=== PATIENT | female | born 1965 | race Caucasian/White ===

== ENCOUNTER 2017-07-31 11:50 | Day surgery (SDC) | payer OTHER ==
[2017-07-30 11:34] VITALS: BMI 23.8
[2017-07-31 14:59] VITALS: BP 120/74; PULSE 63; TEMP 97.8
== END 2017-07-31 13:56 | disposition home or self-care (01) ==
LOC: JASU-ENDO 11:50
PROVIDERS: ATTEND Internal Medicine Gastroenterology
PROC: 0DJD8ZZ Inspection of Lower Intestinal Tract, Via Natural or Artificial Opening Endoscopic (ICD-10-PCS; principal; 2017-07-31 13:00)
DX: Z12.11 Encounter for screening for malignant neoplasm of colon (principal); K64.8 Other hemorrhoids; K63.89 Other specified diseases of intestine
CPT/HCPCS: 84703

== ENCOUNTER 2019-01-25 16:47 | Emergency (ER) | payer BC ==
[2019-01-25 16:53] VITALS: TEMP 98.2; BMI 23.6
--- NOTE | 2019-01-25 16:56 | PDOC ---
Rapid Medical Evaluation Time Seen by Provider: 01/25/19 16:49 Medical Evaluation: Allergies Allergy/AdvReac Type Severity Reaction Status Date / Time No Known Allergies Allergy Verified 07/30/17 11:34 01/25/19 16:49 I have performed a brief in-person evaluation of this patient. The patient presents with a chief complaint of: Sent by Dr. Moreno for r/o PE. Chest/back pain with inspiration. Just received iron infusion near [facility]. denies recent surgery, no hormonal use, no recent travel. Pertinent physical exam findings: uncomfortable appearing I have ordered the following: ekg, labs The patient will proceed to the ED for further evaluation. Discharge Disposition - Diagnosis Chest pain - Referrals - Patient Instructions - Post Discharge Activity
--- NOTE | 2019-01-25 17:50 | PDOC ---
History of Present Illness - General Chief Complaint: Chest Pain Stated Complaint: SENT BY PCP Time Seen by Provider: 01/25/19 16:49 - History of Present Illness Initial Comments: 01/25/19 17:49 The patient denies shortness of breath, headache and dizziness. Denies fever, chills, nausea, vomit, diarrhea and constipation. Denies dysuria, frequency, urgency and hematuria. Past History - Past Medical History Allergies/Adverse Reactions: Allergies Allergy/AdvReac Type Severity Reaction Status Date / Time No Known Allergies Allergy Verified 01/25/19 16:53 Home Medications: Ambulatory Orders Ferrous Sulfate [Feosol] 325 mg PO DAILY 07/30/17 Anemia: Yes (IRON DEFICIENCY ANEMIA) Asthma: No Cancer: No Cardiac Disorders: No CVA: No COPD: No CHF: No Dementia: No Diabetes: No GI Disorders: No Disorders: No HTN: No Hypercholesterolemia: No Liver Disease: No Seizures: No Thyroid Disease: Yes (HYPO) - Surgical History Abdominal Surgery: No Appendectomy: No Cardiac Surgery: No Cholecystectomy: No Lung Surgery: No Neurologic Surgery: No Orthopedic Surgery: Yes (RT HAND LIGAMENT SURGERY) - Psycho Social/Smoking Cessation Hx Smoking History: Never smoked Hx Alcohol Use: No Drug/Substance Use Hx: No Substance Use Type: None Hx Substance Use Treatment: No Review of Systems - Review of Systems Comments:: 01/25/19 17:49 GENERAL/CONSTITUTIONAL: No fever or chills. No weakness. HEAD, EYES, EARS, NOSE AND THROAT: No change in vision. No ear pain or discharge. No sore throat. CARDIOVASCULAR: No chest pain or shortness of breath RESPIRATORY: No cough, wheezing, or hemoptysis. GASTROINTESTINAL: No nausea, vomiting, diarrhea or constipation. GENITOURINARY: No dysuria, frequency, or change in urination. MUSCULOSKELETAL: No joint or muscle swelling or pain. No neck or back pain. SKIN: No rash NEUROLOGIC: No headache, vertigo, loss of consciousness, or change in strength/ sensation. ENDOCRINE: No increased thirst. No abnormal weight change HEMATOLOGIC/LYMPHATIC: No anemia, easy bleeding, or history of blood clots. ALLERGIC/IMMUNOLOGIC: No hives or skin allergy. *Physical Exam - Vital Signs Last Vital Signs Temp Pulse Resp BP Pulse Ox 98.2 F 87 18 145/84 100 01/25/19 16:49 01/25/19 16:49 01/25/19 16:49 01/25/19 16:49 01/25/19 16:49 - Physical Exam Comments: 01/25/19 17:50 GENERAL: Awake, alert, and fully oriented, in no acute distress HEAD: No signs of trauma, normocephalic, atraumatic EYES: PERRLA, EOMI, sclera anicteric, conjunctiva clear ENT: Auricles normal inspection, hearing grossly normal, nares patent, oropharynx clear without exudates. Moist mucosa NECK: Normal ROM, supple, no lymphadenopathy, JVD, or masses LUNGS: No distress, speaks full sentences, clear to auscultation bilaterally HEART: Regular rate and rhythm, normal S1 and S2, no murmurs, rubs or gallops, peripheral pulses normal and equal bilaterally. ABDOMEN: Soft, nontender, normoactive bowel sounds. No guarding, no rebound. No masses EXTREMITIES: Normal inspection, Normal range of motion, no edema. No clubbing or cyanosis. NEUROLOGICAL: Cranial nerves II through XII grossly intact. Normal speech, normal gait, no focal sensorimotor deficits SKIN: Warm, Dry, normal turgor, no rashes or lesions noted. ED Treatment Course - LABORATORY CBC & Chemistry Diagram: 01/25/19 17:30 01/25/19 17:30 Discharge - Discharge Information Clinical Impression/Diagnosis: Chest pain - Follow up/Referral - Patient Discharge Instructions - Post Discharge Activity
[2019-01-25 17:53] LABS: BASO % 0.4 % (0-2.0); EOS % 0.2 % (0-4.5); HEMATOCRIT 29.8 % (32.4-45.2); HEMOGLOBIN 9.1 GM/dL (10.7-15.3); LYMPH % 10.4 % (8-40); MCH 20.6 pg (25.7-33.7); MCHC 30.4 g/dl (32.0-36.0); MEAN CELL VOLUME 67.8 fl (80-96); MEAN PLT VOLUME 9.1 fl (7.5-11.1); MONO % 1.3 % (3.8-10.2); NEUT % 87.7 % (42.8-82.8); PLATELET COUNT 419 K/MM3 (134-434); RDW 17.7 % (11.6-15.6); WHITE BLOOD COUNT 11.4 K/mm3 (4.0-10.0)
[2019-01-25 18:06] LABS: INR 1.1 (0.83-1.09)
[2019-01-25] MEDS ORDERED: SODIUM CHLORIDE 1,000 ML IV STA (18:08)
[2019-01-25 18:09] LABS: ACTIVATED PTT 32.4 SECONDS (25.2-36.5)
--- NOTE | 2019-01-25 18:14 | PDOC ---
History of Present Illness - General Chief Complaint: Chest Pain Stated Complaint: SENT BY PCP Time Seen by Provider: 01/25/19 16:49 History Source: Patient - History of Present Illness Initial Comments: 01/25/19 18:09 53 yo F PMH of anemia presents to ED with back pain. Pt states she had an iron transfusion beginning at 2 pm today. throughout the whole transfusion she had no complaints. after she left the transfusion center she states that she suddenly has LBP. She went to her PMD who recommended she come to the ED. While at the ED the pt states she had 10/10 LBP which radiated to scapula and anterior chest. Pt states it was worse with breathing. Pt states since she first got here, the pain is going away and now its a 2/10. She is also having R hand swelling . denies SOB, difficulty swallowing, pruritus. 01/25/19 18:27 01/25/19 18:30 Past History - Past Medical History Allergies/Adverse Reactions: Allergies Allergy/AdvReac Type Severity Reaction Status Date / Time No Known Allergies Allergy Verified 01/25/19 16:53 Home Medications: Ambulatory Orders Ferrous Sulfate [Feosol] 325 mg PO DAILY 07/30/17 Anemia: Yes (IRON DEFICIENCY ANEMIA) Asthma: No Cancer: No Cardiac Disorders: No CVA: No COPD: No CHF: No Dementia: No Diabetes: No GI Disorders: No Disorders: No HTN: No Hypercholesterolemia: No Liver Disease: No Seizures: No Thyroid Disease: Yes (HYPO) - Surgical History Abdominal Surgery: No Appendectomy: No Cardiac Surgery: No Cholecystectomy: No Lung Surgery: No Neurologic Surgery: No Orthopedic Surgery: Yes (RT HAND LIGAMENT SURGERY) - Psycho Social/Smoking Cessation Hx Smoking History: Never smoked Hx Alcohol Use: No Drug/Substance Use Hx: No Substance Use Type: None Hx Substance Use Treatment: No Review of Systems - Review of Systems Constitutional: No: Chills, Fever HEENTM: No: Throat Pain, Difficulty Swallowing, Mouth Swelling Respiratory: No: Shortness of Breath, Stridor, Wheezing Cardiac (ROS): No: Chest Pain, Lightheadedness ABD/GI: No: Nausea, Vomiting Musculoskeletal: Yes: Back Pain, Joint Stiffness (R wrist ) Neurological: Yes: Tingling (from head to toes). No: Headache Hematologic/Lymphatic: Yes: Anemia *Physical Exam - Vital Signs Last Vital Signs Temp Pulse Resp BP Pulse Ox 98.2 F 87 18 145/84 100 01/25/19 16:49 01/25/19 16:49 01/25/19 16:49 01/25/19 16:49 01/25/19 16:49 - Physical Exam General Appearance: Yes: Nourished, Appropriately Dressed. No: Apparent Distress, Disheveled HEENT: positive: Normal Voice, Pharynx Normal. negative: Muffled/Hoarse voice, Pharyngeal Erythema, Tonsillar Exudate, Tonsillar Erythema Neck: negative: Lymphadenopathy (R), Lymphadenopathy (L) Respiratory/Chest: positive: Lungs Clear, Normal Breath Sounds. negative: Respiratory Distress, Accessory Muscle Use Cardiovascular: positive: Regular Rhythm, S1, S2, Tachycardia. negative: Murmur Gastrointestinal/Abdominal: positive: Normal Bowel Sounds, Soft. negative: Distended, Guarding, Rebound Musculoskeletal: positive: Normal Inspection. 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, Fully Oriented ED Treatment Course - LABORATORY CBC & Chemistry Diagram: 01/25/19 17:30 01/25/19 17:30 - ADDITIONAL ORDERS Additional order review: Laboratory Results 01/25/19 17:30 PT with INR 13.00 INR 1.10 H PTT (Actin FS) 32.4 01/25/19 17:30 RBC 4.40 MCV 67.8 L MCHC 30.4 L RDW 17.7 H MPV 9.1 Neutrophils % 87.7 H Lymphocytes % 10.4 Monocytes % 1.3 L Eosinophils % 0.2 Basophils % 0.4 Medical Decision Making - Medical Decision Making 01/25/19 18:38 53 yo F with back pain post Fe transfusion -cbc, cmp -ekg nsr -cxr reviewed, no acute pulm process 01/25/19 18:39 -UA reviewed no UTI 01/25/19 18:59 Discharge - Discharge Information Problems reviewed: Yes Clinical Impression/Diagnosis: Back pain Qualifiers: Back pain location: low back pain Chronicity: acute Back pain laterality: bilateral Sciatica presence: without sciatica Qualified Code(s): M54.5 - Low back pain Condition: Good Disposition: HOME - Admission No - Follow up/Referral - Patient Discharge Instructions Patient Printed Discharge Instructions: DI for Low Back Pain Additional Instructions: You came into the hospital for low back pain. You had an EKG, Chest Xray, which were within normal limits. Your blood shows that you are anemic. Your Hemoglobin is 9.1 Please follow up with your primary medical physician regarding your anemia and iron infusions. Please continue to take your home medications as prescribed. If you have any new, worsening, or concerning symptoms please return to the ED. - Post Discharge Activity
[2019-01-25 18:22] LABS: ALBUMIN 4.3 g/dl (3.4-5.0); BILIRUBIN,TOTAL 0.5 mg/dL (0.2-1); BLOOD UREA NITROGEN 12.8 mg/dL (7-18); CALCIUM 10.1 mg/dL (8.5-10.1); MAGNESIUM 2.1 mg/dL (1.8-2.4); POTASSIUM 4.5 mmol/L (3.5-5.1)
[2019-01-25 18:24] LABS: ANISOCYTOSIS 2+; MACROCYTOSIS 1+; PLATELET ESTIMATE NORMAL
--- NOTE | 2019-01-25 18:29 | PDOC ---
Documentation entered by Dave Murillo SCRIBE, acting as scribe for Whitley Fernandez MD. Whitley Fernandez MD: This documentation has been prepared by the liyahibeChidi Daniel, SCRIBE, under my direction and personally reviewed by me in its entirety. I confirm that the documentation accurately reflects all work, treatment, procedures, and medical decision making performed by me. Attending Attestation - Resident Resident Name: Sheyla Hough - ED Attending Attestation I have performed the following: I have examined & evaluated the patient, The case was reviewed & discussed with the resident, I agree w/resident's findings & plan, Exceptions are as noted - HPI HPI: 01/25/19 18:06 The patient is a 53 year old female with a past medical history of anemia here today for evaluation of bilateral flank pain. The patient reports that she went to [facility] to receive an iron infusion and after developed bilateral flank pain that radiates up to her scapulas that occurs with deep breaths. Patient was seen by Dr. Moreno and was sent to the ED for evaluation. Patient denies headache, lightheadedness. Denies fever, chills. Denies chest pain, shortness of breath. Denies nausea, vomiting, diarrhea, abdominal pain. Allergies: NKA PCP: Dilip Moreno - Physicial Exam PE: 01/25/19 18:09 GENERAL: Well developed, well nourished. Awake and alert. No acute distress. HEENT: Normocephalic, atraumatic. PERRLA, EOMI. No conjunctival pallor. Sclera are non- icteric. Moist mucous membranes. Oropharynx is clear. NECK: Supple. Full ROM. No JVD. Carotid pulses 2+ and symmetric, without bruits. No thyromegaly. No lymphadenopathy. CARDIOVASCULAR: Regular rate and rhythm. No murmurs, rubs, or gallops. Distal pulses are 2+ and symmetric. PULMONARY: No evidence of respiratory distress. Lungs clear to auscultation bilaterally. No wheezing, rales or rhonchi. ABDOMINAL: Soft. Non-tender. Non-distended. No rebound or guarding. No organomegaly. Normoactive bowel sounds. MUSCULOSKELETAL Normal range of motion at all joints. No bony deformities or tenderness. No CVA tenderness. EXTREMITIES: +right hand edema No cyanosis. No clubbing. No calf tenderness. SKIN: Warm and dry. Normal capillary refill. No rashes. No jaundice. NEUROLOGICAL: Alert, awake, appropriate. Cranial nerves 2-12 intact. No deficits to light touch and temperature in face, upper extremities and lower extremities. No motor deficits in the in face, upper extremities and lower extremities. Normoreflexic in the upper and lower extremities. Normal speech. Toes are down- going bilaterally. Gait is normal without ataxia. PSYCHIATRIC: Cooperative. Good eye contact. Appropriate mood and affect. - Medical Decision Making 01/25/19 18:27 53-year-old female who developed right flank pain that radiated to her chest following iron infusion presented to the emergency department On arrival she was afebrile, normotensive with no respiratory distress Lungs are clear to auscultation CVS regular rate and rhythm S1-S2 Abdomen is not tender She had complaints of some subjective low back pain and some flank pain but no complaint of hematuria or dysuria EKG is unremarkable normal sinus rhythm at 85, normal QTC, no evidence of any acute ischemia
[2019-01-25 18:41] LABS: EPI CELLS 1.6 /HPF (0-5/HPF); HYALINE CASTS 2 /lpf (0-8); PH,URINE 7.5 (5.0-8.0); URINE APPEARANCE CLEAR; URINE BACTERIA 112.3 /hpf (NEGATIVE); URINE BILIRUBIN NEGATIVE (NEGATIVE); URINE COLOR YELLOW; URINE GLUCOSE (UA) NEGATIVE (NEGATIVE); URINE KETONE 1+ (NEGATIVE); URINE LEUK ESTERASE NEGATIVE (NEGATIVE); URINE NITRITE NEGATIVE (NEGATIVE); URINE PROTEIN NEGATIVE (NEGATIVE); URINE RBC 3 /hpf (0-4); URINE UROBILINOGEN 0.2 mg/dL (0.2-1.0); URINE WBC 2 /hpf (0-5)
[2019-01-25 19:26] VITALS: BP 121/78; PULSE 82
--- NOTE | 2019-01-27 12:40 | EKG ---
Test Reason : Blood Pressure : / mmHG Vent. Rate : 088 BPM Atrial Rate : 088 BPM P-R Int : 110 ms QRS Dur : 078 ms QT Int : 360 ms P-R-T Axes : 055 073 060 degrees QTc Int : 435 ms SINUS RHYTHM WITH SHORT OK OTHERWISE NORMAL ECG WHEN COMPARED WITH ECG OF 29-DEC-2003 10:02, OK INTERVAL HAS DECREASED NONSPECIFIC T WAVE ABNORMALITY NOW EVIDENT IN ANTEROLATERAL LEADS Confirmed by NISREEN BRENNAN, JERRY ([id number]) on 01/27/2019 12:40:19 PM Referred By: Confirmed By:JERRY NIELSON MD
== END 2019-01-25 19:23 | disposition home or self-care (01) ==
LOC: JER 16:47
PROC: 3E0337Z Introduction of Electrolytic and Water Balance Substance into Peripheral Vein, Percutaneous Approach (ICD-10-PCS; principal; 2019-01-25)
DX: M54.5 Low back pain (principal); D50.9 Iron deficiency anemia, unspecified; Z98.890 Other specified postprocedural states; E03.9 Hypothyroidism, unspecified
CPT/HCPCS: 36415; 71046-TC-FY; 80053; 81003; 82550; 83735; 84484; 85025; 85610; 85730; 87086; 93005; 93010; 99283-25; J7030

== ENCOUNTER 2021-02-23 21:57 | Emergency (ER) | payer BC ==
[2021-02-23 22:42] VITALS: TEMP 98.2; BMI 24.1
[2021-02-23] MEDS ORDERED: FAMOTIDINE 20 MG/50 ML IVPB 20 MG/50 ML MG IVPB ONE ×2 (23:18→23:25)
[2021-02-23] MEDS ORDERED: MAG HYDROX/AL HYDROX/SIMETH 30 ML UNIT-DOSE CUP PO ONE (23:18)
[2021-02-23] MEDS ORDERED: MAG HYDROX/AL HYDROX/SIMETH 30 ML UNIT-DOSE CUP ONE (23:24)
[2021-02-24 00:01] LABS: EOS % 2.6 % (0-4.5); HEMATOCRIT 36.8 % (32.4-45.2); HEMOGLOBIN 12.4 GM/dL (10.7-15.3); LYMPH % 35.1 % (8-40); MCHC 33.7 g/dl (32.0-36.0); MEAN PLT VOLUME 7.9 fl (7.5-11.1); MONO % 14.3 % (3.8-10.2); PLATELET COUNT 282 10^3/uL (134-434); RBC 4.14 M/mm3 (3.60-5.2); WHITE BLOOD COUNT 4.4 K/mm3 (4.0-10.0)
[2021-02-24 00:18] LABS: INR 1.15 (0.83-1.09); PROTHROMBIN TIME (PATIENT) 12.9 SEC (9.7-13.0)
[2021-02-24 00:20] LABS: CHLORIDE 105 mmol/L (98-107); SODIUM 142 mmol/L (136-145)
[2021-02-24 00:21] LABS: ACTIVATED PTT 24.9 SECONDS (25.2-36.5); CALCIUM 8.4 mg/dL (8.5-10.1)
[2021-02-24 00:22] LABS: ALBUMIN 2.9 g/dl (3.4-5.0); ANION GAP 8 MMOL/L (8-16); BLOOD UREA NITROGEN 9.2 mg/dL (7-18); CO2 29 mmol/L (21-32); GLUCOSE,RANDOM 101 mg/dL (74-106); MAGNESIUM 2.4 mg/dL (1.8-2.4)
[2021-02-24 00:26] LABS: BILIRUBIN,TOTAL 0.4 mg/dL (0.2-1); CREATININE 0.7 mg/dL (0.55-1.3); SGOT/AST 23 U/L (15-37); SGPT/ALT 24 U/L (13-61); TOT PROT 6.6 g/dl (6.4-8.2)
[2021-02-24 00:28] LABS: ALK PHOS 60 U/L (45-117)
[2021-02-24] MEDS ORDERED: POTASSIUM CHLORIDE TABS 20 MEQ TABLET.ER (FP) PO ONE (00:32)
[2021-02-24] MEDS ORDERED: POTASSIUM CHLORIDE TABS 10 MEQ TABLET.ER (FP) ONE (00:40)
[2021-02-24 03:35] VITALS: BP 122/81; PULSE 81
== END 2021-02-24 03:36 | disposition home or self-care (01) ==
LOC: JER 21:57
PROC: 3E033GC Introduction of Other Therapeutic Substance into Peripheral Vein, Percutaneous Approach (ICD-10-PCS; principal; 2021-02-23)
DX: R07.9 Chest pain, unspecified (principal)
CPT/HCPCS: 36415; 71046-TC-FY; 80053; 83735; 84484; 85025; 85610; 85730; 93005; 93010; 99285-25; C9803; U0003; U0005

== ENCOUNTER 2023-01-16 05:09 | Day surgery (SDC) | payer BC ==
[2023-01-14 11:44] VITALS: BMI 24.1
[2023-01-16 08:40] VITALS: TEMP 97.8
[2023-01-16 09:22] VITALS: BP 115/69; PULSE 63; RESP 15
== END 2023-01-16 09:53 | disposition home or self-care (01) ==
LOC: JASU-ENDO 05:09
PROVIDERS: ATTEND Internal Medicine Gastroenterology
PROC: 0DB98ZX Excision of Duodenum, Via Natural or Artificial Opening Endoscopic, Diagnostic (ICD-10-PCS; 2023-01-16)
PROC: 0DB78ZX Excision of Stomach, Pylorus, Via Natural or Artificial Opening Endoscopic, Diagnostic (ICD-10-PCS; 2023-01-16)
PROC: 0DB68ZX Excision of Stomach, Via Natural or Artificial Opening Endoscopic, Diagnostic (ICD-10-PCS; 2023-01-16)
PROC: 0DB48ZX Excision of Esophagogastric Junction, Via Natural or Artificial Opening Endoscopic, Diagnostic (ICD-10-PCS; 2023-01-16)
PROC: 0DJD8ZZ Inspection of Lower Intestinal Tract, Via Natural or Artificial Opening Endoscopic (ICD-10-PCS; principal; 2023-01-16 08:00)
DX: Z12.11 Encounter for screening for malignant neoplasm of colon (principal); K64.8 Other hemorrhoids; K59.89 Other specified functional intestinal disorders; K29.50 Unspecified chronic gastritis without bleeding; K21.00 Gastro-esophageal reflux disease with esophagitis, without bleeding; K31.7 Polyp of stomach and duodenum; R12 Heartburn
CPT/HCPCS: 88305-TC; 88342-TC